=== PATIENT | male | born 1980 | race Caucasian/White ===

== ENCOUNTER 2020-11-04 03:12 | Emergency (ER) | payer SELFPAY ==
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
[2020-11-04] MEDS ORDERED: NORCO 5/325 MG PO ONE (04:05)
[2020-11-04] MEDS ORDERED: NORCO 5/325 MG ONE (04:08)
[2020-11-04 04:17] VITALS: BP 118/87; PULSE 85; O2SAT 98
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
== END 2020-11-04 04:16 | disposition home or self-care (01) ==
LOC: ED 03:12
DX: M25.512 Pain in left shoulder (principal); V89.2XXA Person injured in unspecified motor-vehicle accident, traffic, initial encounter; Y93.9 Activity, unspecified
CPT/HCPCS: 73030; 99283; A9270-GY

== ENCOUNTER 2023-11-27 05:20 | Emergency (ER) | payer BC, OTHER ==
[2023-11-27 05:40] VITALS: TEMP 96.8
[2023-11-27 06:26] LABS: Absolute Neutrophil Ct (ANC) 6.05 x10^3/uL (1.78-5.38); BASOPHIL % 0.3 % (0.2-1.2); Basophil (Absolute #) 0.03 x10^3/uL (0.01-0.08); Eosinophil % 1.4 % (0.8-7.0); Eosinophil (Absolute #) 0.13 x10^3/uL (0.04-0.54); Hemoglobin 15.7 g/dL (13.7-17.5); IMMATURE GRAN # 0.03 x10^3u/L (0.001-0.031); IMMATURE GRAN % 0.3 % (0.001-0.429); Lymphocyte (Absolute #) 2.09 x10^3/uL (1.32-3.57); Lymphocytes % 22.5 % (21.8-53.1); Mean Cell Volume 88.5 fL (79.0-92.2); Mean Corpuscular Hemoglobin 29.6 pg (25.7-32.2); Mean Corpuscular Hgb Concent. 33.4 g/dL (32.3-36.5); Mean Platelet Volume 10.4 fL (9.4-12.4); Monocyte (Absolute #) 0.95 x10^3/uL (0.30-0.82); Monocytes % 10.2 % (5.3-12.2); Neutrophil % 65.3 % (34.0-67.9); Platelet Count 227 x10^3/uL (163-337); Red Blood Count 5.31 x10^6/uL (4.63-6.08); Red Cell Distribution Width 12.4 % (11.6-14.4); White Blood Count 9.3 x10^3/uL (4.23-9.07)
--- NOTE | 2023-11-27 06:26 | ERPHSYRPT ---
- History of Present Illness Time Seen by Provider: 11/27/23 05:45 Source: patient Exam Limitations: no limitations Patient Subjective Stated Complaint: lt shoulder pain Triage Nursing Assessment: Pt ambulated into ER without diff. Pt alert and or iented x4. Pt c/o left shoulder pain which began yesterday morning after waking up and got increasingly worse throughout the day and into the night. Pt has been unable to sleep. Pt c/o pain in the left shoulder, radiates to the back (shoulder blade area) and to the front breast bone area. Pt states, "I feel like I have to hold my shoulder up and can't let it fall down naturally". No bruising or obvious deformity noted. Physician History: 43-year-old male presents to the emergency department for evaluation of left- sided shoulder pain. Patient states pain started yesterday. No trauma. Pain spontaneously worsen. Patient states the pain awoke him from his sleep this morning. Pain described as an ache that radiates back and between his shoulder blade and into his breastbone. Patient reports pain is worse when he allows his left arm to hang down naturally. Pain not worse with movement or palpation. Symptoms are mild to moderate in intensity. Patient reports a history of left shoulder surgery. No associated nausea vomiting or diaphoresis. Patient voices no other complaints or concerns at this time. Portions of this note were created with voice recognition technology. There may be grammatical, spelling, punctuation or sound alike errors Timing/Duration: yesterday Severity: moderate Modifying Factors: Improves With: nothing (Pain worse when he allows his arm to hang down at his side.) Associated Symptoms: denies symptoms Allergies/Adverse Reactions: No Known Drug Allergies Allergy (Verified 11/04/20 03:33) Home Medications: No Reportable Medications [No Reported Medications] 11/04/20 [History] Hx Tetanus, Diphtheria Vaccination/Date Given: Yes Hx Influenza Vaccination/Date Given: No Hx Pneumococcal Vaccination/Date Given: No Travel Risk - International Travel Have you traveled outside of the country in past 3 weeks: No - Emerging Infectious Disease Are you exhibiting symptoms associated with any current EIDs: No - Review of Systems Constitutional: No Symptoms, No Fever, No Chills Eyes: No Symptoms Ears, Nose, & Throat: No Symptoms Respiratory: No Symptoms, No Cough, No Dyspnea Cardiac: No Symptoms, No Chest Pain, No Edema, No Syncope Abdominal/Gastrointestinal: No Symptoms, No Abdominal Pain, No Nausea, No Vomiting, No Diarrhea Genitourinary Symptoms: No Symptoms, No Dysuria Musculoskeletal: No Symptoms, No Back Pain, No Neck Pain Skin: No Symptoms, No Rash Neurological: No Symptoms, No Dizziness, No Focal Weakness, No Sensory Changes Psychological: No Symptoms Endocrine: No Symptoms Hematologic/Lymphatic: No Symptoms Immunological/Allergic: No Symptoms All Other Systems: Reviewed and Negative - Past Medical History Pertinent Past Medical History: Yes Neurological History: No Pertinent History ENT History: No Pertinent History Cardiac History: No Pertinent History Respiratory History: No Pertinent History Endocrine Medical History: No Pertinent History Musculoskeletal History: Fractures GI Medical History: No Pertinent History History: No Pertinent History Psycho-Social History: Anxiety, Depression Male Reproductive Disorders: No Pertinent History - Past Surgical History Past Surgical History: Yes Neuro Surgical History: No Pertinent History Cardiac: No Pertinent History Respiratory: No Pertinent History Gastrointestinal: No Pertinent History Genitourinary: No Pertinent History Musculoskeletal: Orthopedic Surgery Male Surgical History: No Pertinent History Other Surgical History: lt shoulder surgery. lt knee scope - Social History Smoking Status: Current every day smoker How long have you smoked: 15 yrs Exposure to second hand smoke: No Drug Use: marijuana Patient Lives Alone: No - Social Determinants of Health Will the patient participate in the screening: Declined to provide - Nursing Vital Signs Nursing Vital Signs: Initial Vital Signs Temperature 96.8 F 11/27/23 05:37 Pulse Rate 87 11/27/23 05:37 Respiratory Rate 18 11/27/23 05:37 Blood Pressure 177/127 11/27/23 05:37 O2 Sat by Pulse Oximetry 99 11/27/23 05:37 Pain Scale Pain Intensity 10 - Physical Exam General Appearance: no apparent distress, alert Eye Exam: PERRL/EOMI, eyes nml inspection Ears, Nose, Throat Exam: normal ENT inspection, TMs normal, pharynx normal, moist mucous membranes Neck Exam: normal inspection, non-tender, supple, full range of motion Respiratory Exam: normal breath sounds, lungs clear, airway intact, No respiratory distress Cardiovascular Exam: regular rate/rhythm, normal heart sounds, normal peripheral pulses Gastrointestinal/Abdomen Exam: soft, normal bowel sounds, No tenderness, No mass Back Exam: normal inspection, normal range of motion, No CVA tenderness, No vertebral tenderness Extremity Exam: normal inspection, normal range of motion, pelvis stable Neurologic Exam: alert, oriented x 3, cooperative, normal mood/affect, sensation nml, No motor deficits Skin Exam: normal color, warm, dry, No rash Lymphatic Exam: No adenopathy SpO2 Interpretation: normal SpO2: 99 O2 Delivery: Room Air - Course Nursing assessment & vital signs reviewed: Yes EKG Interpreted by Me: RATE (80), Sinus Rhythm, NORMAL AXIS, NORMAL INTERVALS, NORMAL QRS - Radiology Exams Shoulder X-ray Interpretation: Interpreted by me (Postsurgical changes, no fractures or dislocations.) Ordered Tests: Active Orders 24 hr Category Date Time Status Electrician Apprentice STAT Care 11/27/23 05:45 Active EKG-ER Only STAT Care 11/27/23 05:45 Active IV Insertion STAT Care 11/27/23 05:45 Active Pulse Oximetry (ED) STAT Care 11/27/23 05:45 Active SHOULDER Stat Exams 11/27/23 05:46 Taken CBC W DIFF Stat Lab 11/27/23 06:10 Completed CMP Stat Lab 11/27/23 06:10 Received D-DIMER QUANTITATIVE Stat Lab 11/27/23 06:10 Completed TROPONIN Q4H Lab 11/27/23 06:10 Received TROPONIN Q4H Lab 11/27/23 09:45 Ordered TROPONIN Q4H Lab 11/27/23 13:45 Ordered Lab/Rad Data: Laboratory Result Diagrams 11/27/23 06:10 Laboratory Results 11/27/23 11/27/23 Range/Units 06:10 06:10 WBC 9.3 H (4.23-9.07) x10^3/uL RBC 5.31 (4.63-6.08) x10^6/uL Hgb 15.7 (13.7-17.5) g/dL Hct 47.0 (40.1-51.0) % MCV 88.5 (79.0-92.2) fL MCH 29.6 (25.7-32.2) pg MCHC 33.4 (32.3-36.5) g/dL RDW 12.4 (11.6-14.4) % Plt Count 227 (163-337) x10^3/uL MPV 10.4 (9.4-12.4) fL Gran % 65.3 (34.0-67.9) % Immature Gran % (Auto) 0.3 (0.001-0.429) % Nucleat RBC Rel Count 0.0 (0.00-0.2) % Eos # (Auto) 0.13 (0.04-0.54) x10^3/uL Immature Gran # (Auto) 0.03 (0.001-0.031) x10^3u/L Absolute Lymphs (auto) 2.09 (1.32-3.57) x10^3/uL Absolute Monos (auto) 0.95 H (0.30-0.82) x10^3/uL Absolute Nucleated RBC 0.00 (0.00-0.012) x10^3u/L Lymphocytes % 22.5 (21.8-53.1) % Monocytes % 10.2 (5.3-12.2) % Eosinophils % 1.4 (0.8-7.0) % Basophils % 0.3 (0.2-1.2) % Absolute Granulocytes 6.05 H (1.78-5.38) x10^3/uL Basophils # 0.03 (0.01-0.08) x10^3/uL D-Dimer 0.25 (0.0-0.50) mg/L - Progress Progress: improved Progress Note: 83-year-old male presents to emergency department for evaluation of left shoulder pain. The characteristics of patient's pain were concerning for acute coronary syndrome. Pain radiated into his chest and back. Workup initiated. EKG sinus rhythm. Troponin and D-dimer pending. It is currently the change of shift. Patient endorsed to who will follow-up on pending workup and make final disposition. Portions of this note were created with voice recognition technology. There may be grammatical, spelling, punctuation or sound alike errors Complexity of problem addressed is moderate acute complicated. No critical care time. Complex of data reviewed and analyzed is moderate. Test ordered test reviewed results analyzed and correlated clinically with history and physical exam. Risk of complication and or risk of morbidity/mortality patient management is low. Vital stable. Time spent to discharge patient is approximately 15 minutes. Plan of care established for shared decision making. No social determinants of health present impede follow-up. Portions of this note were created with voice recognition technology. There may be grammatical, spelling, punctuation or sound alike errors 11/27/23 06:43 Counseled pt/family regarding: lab results, diagnosis, need for follow-up, rad results - Departure Departure Disposition: Home Clinical Impression: Shoulder pain, left Condition: Stable Critical Care Time: No Referrals: DOCTOR,NO FAMILY [Primary Care Provider] - Follow up/PCP as directed TAMIKO DE LUNA MD [ACTIVE STAFF] - Follow up/PCP as directed Additional Instructions: Discharge/Care Plan JUSTINETREVOR Kaiser was seen on 11/27/23 in the Emergency Room. The patient was counseled regarding Diagnosis,Lab results, Imaging studies, need for follow up and when to return to the Emergency Room. Prescriptions given: Discharge Note I have spoken with the patient and/or caregivers. I have explained the patient's condition, diagnosis and treatment plan based on the information available to me at this time. I have answered the patient's and/or caregiver's questions and addressed any concerns. The patient and/or caregivers have as good understanding of the patient's diagnosis, condition and treatment plan as can be expected at this point. The vital signs have been stable. The patient's condition is stable and appropriate for discharge from the emergency department. The patient will pursue further outpatient evaluation with the primary care physician or other designated or consulting physician as outlined in the discharge instructions. The patient and/or caregivers are agreeable to this plan of care and follow-up instructions have been explained in detail. The patient and/or caregivers have received these instruction. The patient/and or caregivers are aware that any significant change in condition or worsening of symptoms should prompt an immediate return to this or the closest emergency department or call 911.
[2023-11-27 06:51] LABS: ALBUMIN 4.4 g/dL (3.5-5.0); ALKALINE PHOSPHATASE 53 U/L (38-126); ANION GAP 11.9 MEQ/L (5-15); BLOOD UREA NITROGEN 13 mg/dL (9-20); CHLORIDE 104 mmol/L (98-107); Calcium 9.6 mg/dL (8.4-10.2); Carbon Dioxide 27 mmol/L (22-30); Creatinine 1 0.97 mg/dL (0.66-1.25); Glucose 131 mg/dL (74-106); SGOT/AST 26 U/L (17-59); SGPT/ALT 21 U/L (0-50); SODIUM 139 mmol/L (135-145); TROPONIN < 0.012 ng/mL (0.000-0.033); Total Protein 7.8 g/dL (6.3-8.2)
[2023-11-27] MEDS ORDERED: TORAdol 30 mg Injection ONE (07:09)
[2023-11-27] MEDS: TORAdol 30 mg Injection IM ONE (07:11)
[2023-11-27] MEDS: TORAdol 30 mg Injection IV ONE (07:13)
--- NOTE | 2023-11-27 09:03 | XRAY ---
Indication: Pain. Comparison: November 04, 2020 3 view left shoulder again demonstrates glenoid process/humeral head orthopedic screws and mild AC degenerative changes. No new/acute bony, articular, or soft tissue abnormalities.
[2023-11-27 09:26] VITALS: O2SAT 98
[2023-11-27 09:53] VITALS: BP 138/72; PULSE 70; RESP 18
== END 2023-11-27 09:54 | disposition home or self-care (01) ==
LOC: ED 05:20
DX: M25.512 Pain in left shoulder (principal); Z72.0 Tobacco use
CPT/HCPCS: 36000; 36415; 73030; 80053; 84484; 85025; 85379; 93005; 93041; 94760; 96374; 99284; J1885

== ENCOUNTER 2024-06-01 19:47 | Emergency (ER) | payer BC, OTHER ==
[2024-06-01] MEDS ORDERED: Zofran 4 MG/2 ML VIAL ONE (19:56)
[2024-06-01] MEDS ORDERED: Sodium Chloride 0.9% 1000 ML 1,000 ML ONE ×2 (19:57→20:15)
[2024-06-01] MEDS ORDERED: MORPHINE SULFATE 4 MG INJ ONE (19:57)
[2024-06-01] MEDS: Zofran 4 MG/2 ML VIAL IV ONE (20:00)
[2024-06-01] MEDS: MORPHINE SULFATE 4 MG INJ IV ONE (20:00)
[2024-06-01 20:05] LABS: Absolute Neutrophil Ct (ANC) 7.17 x10^3/uL (1.78-5.38); BASOPHIL % 0.3 % (0.2-1.2); Basophil (Absolute #) 0.03 x10^3/uL (0.01-0.08); Eosinophil % 1.1 % (0.8-7.0); Eosinophil (Absolute #) 0.12 x10^3/uL (0.04-0.54); Hematocrit 47.3 % (40.1-51.0); Hemoglobin 16.2 g/dL (13.7-17.5); IMMATURE GRAN # 0.03 x10^3u/L (0.001-0.031); IMMATURE GRAN % 0.3 % (0.001-0.429); Lymphocyte (Absolute #) 3.17 x10^3/uL (1.32-3.57); Lymphocytes % 28.4 % (21.8-53.1); Mean Cell Volume 86.5 fL (79.0-92.2); Mean Corpuscular Hemoglobin 29.6 pg (25.7-32.2); Mean Corpuscular Hgb Concent. 34.2 g/dL (32.3-36.5); Monocyte (Absolute #) 0.63 x10^3/uL (0.30-0.82); Monocytes % 5.7 % (5.3-12.2); Neutrophil % 64.2 % (34.0-67.9); Platelet Count 276 x10^3/uL (163-337); Red Blood Count 5.47 x10^6/uL (4.63-6.08); Red Cell Distribution Width 11.9 % (11.6-14.4); White Blood Count 11.2 x10^3/uL (4.23-9.07)
[2024-06-01] MEDS ORDERED: Hydromorphone 1 mg/ml Injection ONE ×2 (20:11→20:25)
[2024-06-01] MEDS: Hydromorphone 1 mg/ml Injection IV ONE ×2 (20:15→20:27)
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
[2024-06-01] MEDS: Sodium Chloride 0.9% 1000 ML 1,000 ML IV STA (20:25)
[2024-06-01 20:33] LABS: ALBUMIN 5.1 g/dL (3.5-5.0); ANION GAP 18.7 MEQ/L (5-15); BILIRUBIN,TOTAL 0.9 mg/dL (0.2-1.3); Calcium 9.7 mg/dL (8.4-10.2); Creatinine 1 1.32 mg/dL (0.66-1.25); EST GLOMERULAR FILTRATION RATE 68.6 ML/MIN; Potassium 4.2 mmol/L (3.5-5.1); Total Protein 8.7 g/dL (6.3-8.2)
[2024-06-01 21:04] VITALS: BP 125/106; PULSE 90; RESP 23
[2024-06-01] MEDS ORDERED: Ketamine HCl 50 MG/ML ONE (21:08)
[2024-06-01] MEDS: Ketamine HCl 50 MG/ML IV ONE (21:10)
[2024-06-01 22:13] VITALS: O2SAT 95
== END 2024-06-01 21:25 | disposition short-term general hospital (02) ==
LOC: ED 19:47
DX: T21.22XA Burn of second degree of abdominal wall, initial encounter (principal); T23.202A Burn of second degree of left hand, unspecified site, initial encounter; T20.22XA Burn of second degree of lip(s), initial encounter; T22.192A Burn of first degree of multiple sites of left shoulder and upper limb, except wrist and hand, initial encounter; T20.10XA Burn of first degree of head, face, and neck, unspecified site, initial encounter; T22.121A Burn of first degree of right elbow, initial encounter; T31.20 Burns involving 20-29% of body surface with 0% to 9% third degree burns; X14.1XXA Other contact with hot air and other hot gases, initial encounter; Y93.G2 Activity, grilling and smoking food; Z72.0 Tobacco use
CPT/HCPCS: 36415; 80053; 85025; 96374; 96375; 99285; J1171; J2270; J2405